=== PATIENT | female | born 1995 | race African-American/Black ===

== ENCOUNTER 2017-05-06 23:09 | Emergency (ER) | payer OTHER ==
[~2017-05-06] VITALS: Ht 175.3 cm; Wt 74.0 kg
[2017-05-07 02:30] VITALS: BP 120/69
== END 2017-05-07 03:42 | disposition home or self-care (01) ==
LOC: ER 23:09
DX: M54.2 Cervicalgia (principal); M54.5 Low back pain; F12.10 Cannabis abuse, uncomplicated; G43.909 Migraine, unspecified, not intractable, without status migrainosus; V89.2XXA Person injured in unspecified motor-vehicle accident, traffic, initial encounter; Y93.89 Activity, other specified; Y92.89 Other specified places as the place of occurrence of the external cause; Y99.8 Other external cause status
CPT/HCPCS: 81025; 99282

== ENCOUNTER 2018-04-23 13:24 | Emergency (ER) | payer OTHER ==
[~2018-04-23] VITALS: Ht 175.3 cm; Wt 75.0 kg
[2018-04-23 13:52] VITALS: BP 141/73
[2018-04-23] MEDS ORDERED: IBUPROFEN 200MG TABLET ONE (14:00)
[2018-04-23] MEDS ORDERED: IBUPROFEN 600MG TABLET PO ONE (14:00)
== END 2018-04-23 21:41 | disposition home or self-care (01) ==
LOC: ER 13:24
DX: S92.591A Other fracture of right lesser toe(s), initial encounter for closed fracture (principal); F12.10 Cannabis abuse, uncomplicated; W22.8XXA Striking against or struck by other objects, initial encounter; Y93.89 Activity, other specified; Y92.34 Swimming pool (public) as the place of occurrence of the external cause; Y99.8 Other external cause status
CPT/HCPCS: 73660; 81025; 99284

== ENCOUNTER 2019-05-31 08:21 | Observation (INO) | payer OTHER ==
[~2019-05-31] VITALS: Ht 175.3 cm; Wt 96.2 kg
== END 2019-05-31 10:50 | disposition home or self-care (01) ==
LOC: 8 EST LDRP 08:21
PROVIDERS: ADMIT Obstetrics & Gynecology; ATTEND Obstetrics & Gynecology
DX: O62.9 Abnormality of forces of labor, unspecified (principal); Z3A.39 39 weeks gestation of pregnancy
CPT/HCPCS: 99281; G0378

== ENCOUNTER 2020-04-25 18:39 | Emergency (ER) | payer OTHER ==
[~2020-04-25] VITALS: Ht 175.3 cm; Wt 79.0 kg
[2020-04-25 19:55] VITALS: BP 126/76
[2020-04-25] MEDS ORDERED: ACETAMINOPHEN 325MG TABLET PO ONE (22:45)
[2020-04-25] MEDS ORDERED: ACETAMINOPHEN 650MG SUPP PR ONE (22:45)
== END 2020-04-25 23:40 | disposition home or self-care (01) ==
LOC: ER 18:39
DX: S16.1XXA Strain of muscle, fascia and tendon at neck level, initial encounter (principal); X58.XXXA Exposure to other specified factors, initial encounter; Y93.89 Activity, other specified; Y92.89 Other specified places as the place of occurrence of the external cause; Y99.8 Other external cause status; G43.909 Migraine, unspecified, not intractable, without status migrainosus; F12.10 Cannabis abuse, uncomplicated
CPT/HCPCS: 99282; 99283

== ENCOUNTER 2021-09-25 15:14 | Emergency (ER) | payer OTHER ==
[~2021-09-25] VITALS: Ht 175.3 cm; Wt 89.5 kg
[2021-09-25 15:29] VITALS: BP 124/73
== END 2021-09-25 15:41 | disposition home or self-care (01) ==
LOC: ER 15:14
DX: S09.90XA Unspecified injury of head, initial encounter (principal); V49.49XA Driver injured in collision with other motor vehicles in traffic accident, initial encounter; Y93.89 Activity, other specified; Y92.89 Other specified places as the place of occurrence of the external cause; Y99.8 Other external cause status; G43.909 Migraine, unspecified, not intractable, without status migrainosus; F12.10 Cannabis abuse, uncomplicated; Z98.890 Other specified postprocedural states
CPT/HCPCS: 99281

== ENCOUNTER 2021-12-20 18:16 | Emergency (ER) | payer OTHER ==
[~2021-12-20] VITALS: Ht 165.1 cm; Wt 60.0 kg
[2021-12-20] MEDS ORDERED: SODIUM CHLORIDE 0.9% 1,000 ML IV ONE (18:45)
[2021-12-20 21:09] LABS: BASOPHILS % 0.2 % (0.0-2.0); EOSINOPHILS % 0.3 % (0.0-5.0); HEMATOCRIT. 38.6 % (36.0-48.0); HEMOGLOBIN. 13.2 g/dL (12.0-16.0); MEAN CORPUSCULAR HEMOGLOBIN 29.2 pg (28.0-32.0); MEAN CORPUSCULAR VOLUME 85.5 fL (81.0-99.0); MEAN PLATELET VOLUME 7.5 fl (7.4-10.4); MONOCYTES % 8.5 % (2.0-8.0); PLATELET 296 x1000/uL (130-400); RED BLOOD CELL COUNT 4.51 mill/uL (4.2-5.4); RED CELL DISTRIBUTION WIDTH 13.2 % (11.6-14.6)
[2021-12-20 21:16] LABS: CHLORIDE 108 mEq/L (98-107)
[2021-12-20 21:23] LABS: HCG SCREEN NEGATIVE
[2021-12-20] MEDS ORDERED: IOHEXOL-300 100 ML BOTTLE ONE (23:23)
[2021-12-21 01:00] VITALS: BP 104/63
== END 2021-12-21 01:40 | disposition home or self-care (01) ==
LOC: ER 18:16
DX: S09.8XXA Other specified injuries of head, initial encounter (principal); S30.1XXA Contusion of abdominal wall, initial encounter; F12.10 Cannabis abuse, uncomplicated; G43.909 Migraine, unspecified, not intractable, without status migrainosus; V43.52XA Car driver injured in collision with other type car in traffic accident, initial encounter; W22.11XA Striking against or struck by driver side automobile airbag, initial encounter; Y93.89 Activity, other specified; Y92.488 Other paved roadways as the place of occurrence of the external cause
CPT/HCPCS: 36415; 70450; 73120; 74177; 80053; 81025; 84703; 85025; 96360; 99285; J7030; Q9967